=== PATIENT | female | born 1965 | race Caucasian/White ===

== ENCOUNTER 2020-07-01 10:43 | Emergency (ER) | payer OTHER ==
[~2020-07-01] VITALS: Ht 170.2 cm; Wt 90.7 kg
[2020-07-01 10:58] VITALS: Ht 170.2 cm; Wt 90.7 kg
[2020-07-01 12:46] VITALS: BP 128/71
== END 2020-07-01 12:46 | disposition home or self-care (01) ==
LOC: ED 10:43
DX: U07.1 COVID-19 (principal); J12.82 Pneumonia due to coronavirus disease 2019
CPT/HCPCS: 82962